=== PATIENT | female | born 1950 | race Caucasian/White ===

== ENCOUNTER → 2016-11-20 | Outpatient (CLI) | payer BC ==
[2016-11-20 15:14] LABS: ALT 136 U/L (9-52); AST 72 U/L (14-36); Alkaline Phosphatase 78 U/L (38-126); Anion Gap 8 mmol/L; Blood Urea Nitrogen 17 mg/dL (7-17); Calcium 12.5 mg/dL (8.4-10.2); Carbon Dioxide 28 mmol/L (22-30); Chloride 105 mmol/L (98-107); Glucose 92 mg/dL (74-99); Non-African American GFR(MDRD) 50 (>60 ml/min/1.73 sqM); Potassium 4.3 mmol/L (3.5-5.1); Sodium 141 mmol/L (137-145); Total Bilirubin 0.6 mg/dL (0.2-1.3); Total Protein 7.8 g/dL (6.3-8.2)
[2016-11-20 15:31] LABS: Prolactin <1.4 ng/mL (3.0-18.6)
== END | disposition home or self-care (01) ==
LOC: LABWHC1 14:43
PROVIDERS: ATTEND Internal Medicine Endocrinology, Diabetes & Metabolism
DX: E21.0 Primary hyperparathyroidism (principal)
CPT/HCPCS: 36415; 80053; 83970; 84146

== ENCOUNTER → 2016-11-29 | Outpatient (CLI) | payer BC ==
--- NOTE | 2016-11-29 12:49 | CT ---
EXAMINATION TYPE: CT abdomen pelvis w con DATE OF EXAM: 11/29/2016 12:08 PM COMPARISON: NONE HISTORY: LLQ pain. Elevated LFTs CT DLP: 1274 mGycm CONTRAST: CT scan of the abdomen and pelvis is performed with Oral Contrast and with IV Contrast, patient injec dora with 100 ml mL of Omnipaque 300. FINDINGS: LUNG BASES-: No visible nodule. No infiltrate. LIVER/GB: No calcified gallstones. Mild hepatic steatosis and mild hepatomegaly. Cystic lesion at t he dome of the liver measuring 3.4 cm. Smaller simple cyst measuring 5 mm left hepatic lobe. Biliary tree is of normal caliber. PANCREAS: No inflammation. No distinct mass. SPLEEN: No splenic enlargement. No lesion seen. ADRENALS: No nodule. No thickening. KIDNEYS/BLADDER: No hydronephrosis. 5 mm nonobstructing calculus mid to upper pole right kidney. No additional calculi seen. No disctinct renal mass. Urinary bladder grossly unremarkable. BOWEL: There is wall thickening involving the sigmoid colon which may reflect colitis. Mild diverticu litis is difficult to exclude. Correlate clinically. The remainder of the colon and small bowel are o f normal caliber. Normal appendix is identified. GENITAL ORGANS: Hysterectomy changes noted. LYMPH NODES: No greater than 1cm abdominal or pelvic lymph nodes are appreciated. AORTA: No significant abnormality. OSSEOUS STRUCTURES: No significant abnormality is seen. OTHER: No significant additional abnormality is seen. IMPRESSION: 1. Sigmoid colitis versus diverticulitis. No evidence of perforation or abscess. 2. Mild hepatic steatosis and borderline hepatomegaly. Hepatic simple cysts.
== END | disposition home or self-care (01) ==
LOC: RADCTMAIN 11:12
PROVIDERS: ATTEND Family Medicine
DX: K76.0 Fatty (change of) liver, not elsewhere classified (principal); R16.0 Hepatomegaly, not elsewhere classified; K76.89 Other specified diseases of liver; K57.90 Diverticulosis of intestine, part unspecified, without perforation or abscess without bleeding; R74.8 Abnormal levels of other serum enzymes
CPT/HCPCS: 74177; Q9967

== ENCOUNTER → 2017-01-09 | Outpatient (CLI) | payer BC | LOC: LABWHC1 11:24 | PROVIDERS: ATTEND Internal Medicine Endocrinology, Diabetes & Metabolism | DX: E21.0 Primary hyperparathyroidism (principal) | CPT/HCPCS: 81050; 82340 ==

== ENCOUNTER 2017-04-17 07:29 | Day surgery (SDC) | payer BC ==
[2017-04-15 16:18] VITALS: BMI 29.1
[~2017-04-17 07:29] MED LIST: LACTATED RINGERS 1,000 ML IV SCH; LIDOCAINE 1% 20 ML VIAL (10MG/ML) FOR IV START INTRADERMA PRN
[2017-04-17 07:39] VITALS: RESP 18; TEMP 97.1
[2017-04-17] MEDS ORDERED: LACTATED RINGERS 1,000 ML IV ONE (07:54)
[2017-04-17] MEDS ORDERED: LIDOCAINE 1% INJ 10MG/ML (20 ML MDV) ONE (07:58)
[2017-04-17] MEDS ORDERED: PROPOFOL 10 MG/ML 20 ML VIAL IV ONE (07:58)
--- NOTE | 2017-04-17 08:03 | P.GSHP ---
History of Present Illness H&P Date: 04/17/17 Chief Complaint: Change in bowel habits Patient here today for colonoscopy. Last colonoscopy was actually 2 years ago. Since that time the patient developed an episode that she was told represented colitis. Some diarrhea. No rectal bleeding. Symptoms resolved at least of antibiotics. No ongoing complaints. Past Medical History Past Medical History: Thyroid Disorder Additional Past Medical History / Comment(s): COLITIS, ABD. PAIN, OCCASIONAL EDEMA, History of Any Multi-Drug Resistant Organisms: None Reported Past Surgical History: Hysterectomy, Orthopedic Surgery Additional Past Surgical History / Comment(s): PARATHYROIDECTOMY, SHOULDER SX Past Anesthesia/Blood Transfusion Reactions: No Reported Reaction Smoking Status: Former smoker - Past Family History Father Family Medical History: Cancer Additional Family Medical History / Comment(s): SKIN Medications and Allergies Home Medications Medication Instructions Recorded Confirmed Type Spironolactone 50 mg PO DAILY 01/11/15 04/15/17 History traZODone HCL [Desyrel] 100 mg PO HS 01/11/15 04/15/17 History Ascorbic Acid [Vitamin C] 500 mg PO DAILY 04/15/17 04/15/17 History Biotin 5,000 mcg PO DAILY 04/15/17 04/15/17 History Calcium Carbonate [Calcium] 600 mg PO DAILY 04/15/17 04/15/17 History Cholecalciferol [Vitamin D3] 1,000 unit PO DAILY 04/15/17 04/15/17 History Cyanocobalamin [Vitamin B-12] 500 mcg PO DAILY 04/15/17 04/15/17 History Estradiol 0.5 mg PO DAILY 04/15/17 04/15/17 History Fish Oil/Dha/Epa [Fish Oil 1,200 2,400 mg PO DAILY 04/15/17 04/15/17 History mg Fish Oil] Vitamin A 2,400 mcg PO DAILY 04/15/17 History Levothyroxine Sodium [Synthroid] 100 mcg PO DAILY 04/17/17 04/17/17 History Allergies Allergy/AdvReac Type Severity Reaction Status Date / Time nickel Allergy Rash/Hives Verified 04/15/17 16:12 [place] Allergy NASAL Uncoded 04/15/17 16:12 [facility] - Exam Vital Signs Temp Pulse Resp BP Pulse Ox 97.1 F L 87 18 126/81 94 L 04/17/17 07:38 04/17/17 07:38 04/17/17 07:38 04/17/17 07:38 04/17/17 07:38 Physical exam: General: Well-developed, well-nourished HEENT: Normocephalic, sclerae nonicteric Abdomen: Nontender, nondistended Extremities: No edema Neuro: Alert and oriented Assessment and Plan (1) Change in bowel habits Narrative/Plan: Will proceed with colonoscopy at this time. Status: Acute
--- NOTE | 2017-04-17 08:21 | P.PCN ---
Date of Procedure: 04/17/17 Procedure(s) Performed: PREOPERATIVE DIAGNOSIS: Change in bowel habits POSTOPERATIVE DIAGNOSIS: Diverticulosis PROCEDURE: Colonoscopy ANESTHESIA: MAC SURGEON: Ced Mari M.D. SPECIMENS: None ENDOSCOPIC PROCEDURE: The patient was placed on the endoscopy table in the left decubitus position. The Olympus colonoscope was inserted into the anus and passed under direct visualization to the base of the cecum. The appendiceal orifice was visualized. From that point the scope was slowly withdrawn inspecting all surfaces carefully. There were no neoplastic or polypoid lesions throughout the cecum, ascending, transverse, descending, sigmoid and rectum. There was moderate diverticulosis noted throughout the colon. In the mid sigmoid colon corresponding to the area on the CAT scan performed in November there was an area of less distensible colon with some very subtle inflammation noted. This is likely a site of recent diverticulitis and residual mild stricture formation. Digital rectal examination was normal. The patient was taken to the recovery room in stable condition per anesthesia guidelines. RECOMMENDATIONS: Continue diverticular diet. We'll discuss the options of elective resection but given the patient's relative lack of symptoms currently we'll likely proceed with close observation. Plan follow colonoscopy 10 years.
[2017-04-17 08:35] VITALS: PULSE 73
[2017-04-17 08:36] VITALS: BP 116/84
== END 2017-04-17 08:52 | disposition home or self-care (01) ==
LOC: ORWHC2ENDO 07:29
PROVIDERS: ATTEND Surgery
DX: R19.4 Change in bowel habit (principal); K57.30 Diverticulosis of large intestine without perforation or abscess without bleeding; E07.9 Disorder of thyroid, unspecified; Z79.899 Other long term (current) drug therapy; Z87.891 Personal history of nicotine dependence
CPT/HCPCS: 45378; J2001; J2704

== ENCOUNTER → 2017-05-09 | Outpatient (CLI) | payer MEDICARE ==
--- NOTE | 2017-05-13 08:21 | MM ---
Reason for exam: screening (asymptomatic). Last mammogram was performed 1 year and 4 months ago. History: Patient is postmenopausal. Taking estrogen for 22 years beginning at age 37. Physical Findings: A clinical breast exam by your physician is recommended on an annual basis and results should be correlated with mammographic findings. MG 3D Screening Mammo W/Cad Bilateral CC and MLO view(s) were taken. Prior study comparison: January 09, 2016, bilateral MG 3d screening mammo w/cad. January 07, 2015, bilateral MG screening mammo w CAD. There are scattered fibroglandular densities. Finding: There is a typically benign equal density (isodense), indistinct lobulated mass located 9 cm from the nipple in the outer quadrant, middle position of the left breast consistent with group of cysts. New finding since January 09, 2016 and January 07, 2015. ASSESSMENT: Incomplete: need additional imaging evaluation, BI-RAD 0 RECOMMENDATION: Ultrasound of the left breast. (upper outer quadrant) [facility] will attempt to contact patient to return for ultrasound.
== END | disposition home or self-care (01) ==
LOC: RADMAMWWP 11:38
PROVIDERS: ATTEND Obstetrics & Gynecology
DX: Z12.31 Encounter for screening mammogram for malignant neoplasm of breast (principal)
CPT/HCPCS: 77063; G0202

== ENCOUNTER → 2017-12-11 | Outpatient (CLI) | payer MEDICARE ==
--- NOTE | 2017-12-11 15:16 | US ---
EXAMINATION TYPE: US thyroid st tissue head/neck DATE OF EXAM: 12/11/2017 COMPARISON: US 12/27/2009 CLINICAL HISTORY: E04.1 thyroid nodule. Patient claims thyroid bx in MD office last year. Patient on Synthroid. GLAND SIZE: Right Lobe: 2.1 x 0.6 x 0.4 cm Overall Parenchyma: heterogenous Left Lobe: 1.8 x 0.7 x 0.5 cm Overall Parenchyma: heterogeneous Isthmus Thickness: 0.2 cm NODULES RIGHT: # of nodules measured on right: 0 LEFT: # of nodules measured on left: 0 ISTHMUS: # of nodules measured in the isthmus: 0 Bilateral neck scanned, no evidence of lymphadenopathy. IMPRESSION: Small, heterogeneous thyroid, bilaterally.
== END | disposition home or self-care (01) ==
LOC: RADUSMAIN 14:39
PROVIDERS: ATTEND Internal Medicine Endocrinology, Diabetes & Metabolism
DX: E04.1 Nontoxic single thyroid nodule (principal); E21.0 Primary hyperparathyroidism
CPT/HCPCS: 36415; 76536; 83970

== ENCOUNTER → 2018-02-13 | Outpatient (CLI) | payer MEDICARE ==
--- NOTE | 2018-02-13 14:04 | MM ---
Reason for exam: follow-up at short interval from prior study. Last mammogram was performed 9 months ago. History: Patient is postmenopausal. Taking estrogen for 22 years beginning at age 37. Physical Findings: Nurse did not find any significant physical abnormalities on exam. MG 3D Diag Mammo W/Cad LT CC, MLO, and XCCL view(s) were taken of the left breast. Prior study comparison: May 09, 2017, bilateral MG 3d screening mammo w/cad. January 09, 2016, bilateral MG 3d screening mammo w/cad. The breast tissue is heterogeneously dense. This may lower the sensitivity of mammography. Upper outer quadrant density of the left breast has resolved. No significant new findings when compared with previous films. These results were verbally communicated with the patient and result sheet given to the patient on 02/13/18. ASSESSMENT: Negative, BI-RAD 1 RECOMMENDATION: Return to routine screening mammogram schedule for both breasts.
== END | disposition home or self-care (01) ==
LOC: RADMAMWWP 12:53
PROVIDERS: ATTEND Family Medicine
DX: R92.8 Other abnormal and inconclusive findings on diagnostic imaging of breast (principal)
CPT/HCPCS: 77065; G0279; 77061

== ENCOUNTER → 2018-05-27 | Outpatient (CLI) | payer MEDICARE ==
--- NOTE | 2018-05-28 08:54 | MM ---
Reason for exam: screening (asymptomatic). Last mammogram was performed 3 months ago. History: Patient is postmenopausal. Taking estrogen for 22 years beginning at age 37. Physical Findings: A clinical breast exam by your physician is recommended on an annual basis and results should be correlated with mammographic findings. MG 3D Screening Mammo W/Cad Bilateral CC and MLO view(s) were taken. Prior study comparison: February 13, 2018, left breast MG 3d diag mammo w/cad LT. May 09, 2017, bilateral MG 3d screening mammo w/cad. The breast tissue is heterogeneously dense. This may lower the sensitivity of mammography. Finding: There are typically benign dystrophic, round, diffuse/scattered and grouped calcifications in both breasts. There is no discrete abnormality. ASSESSMENT: Benign, BI-RAD 2 RECOMMENDATION: Routine screening mammogram of both breasts in 1 year.
== END | disposition home or self-care (01) ==
LOC: RADMAMWWP 10:57
PROVIDERS: ATTEND Family Medicine
DX: Z12.31 Encounter for screening mammogram for malignant neoplasm of breast (principal)
CPT/HCPCS: 77063; 77067

== ENCOUNTER → 2019-02-23 | Outpatient (CLI) | payer MEDICARE ==
--- NOTE | 2019-02-23 10:36 | MM ---
Reason for exam: clinical finding. Last mammogram was performed 9 months ago. History: Patient is postmenopausal. Taking estrogen for 22 years beginning at age 37. Physical Findings: Nurse did not find any significant physical abnormalities on exam. MG 3D Diag Mammo W/Cad JUNIOR Bilateral CC and MLO view(s) were taken. Prior study comparison: May 27, 2018, bilateral MG 3d screening mammo w/cad. February 13, 2018, left breast MG 3d diag mammo w/cad LT. The breast tissue is heterogeneously dense. This may lower the sensitivity of mammography. Benign appearing bilateral calcifications. No suspicious abnormality. No significant new findings when compared with previous films. These results were verbally communicated with the patient and result sheet given to the patient on 02/23/19. ASSESSMENT: Incomplete: need additional imaging evaluation, BI-RAD 0 RECOMMENDATION: Ultrasound of the right breast. (focal right pain)
--- NOTE | 2019-02-23 10:37 | USB ---
Reason for exam: additional evaluation requested from abnormal screening. History: Patient is postmenopausal. Taking estrogen for 22 years beginning at age 37. US Breast Limited RT Right limited breast ultrasound including focal area of concern, retroareolar and axilla demonstrates no cystic or solid lesion seen. No suspicious sonographic finding. These results were verbally communicated with the patient and result sheet given to the patient on 02/23/19. ASSESSMENT: Negative, BI-RAD 1 RECOMMENDATION: Routine screening mammogram of both breasts in 1 year. Manage on a clinical basis with regard to pain.
== END | disposition home or self-care (01) ==
LOC: RADMAMWWP 08:52
PROVIDERS: ATTEND Family Medicine
DX: R92.8 Other abnormal and inconclusive findings on diagnostic imaging of breast (principal)
CPT/HCPCS: 77066; 76642; G0279; 77062

== ENCOUNTER → 2019-05-07 | Outpatient (CLI) | payer MEDICARE ==
--- NOTE | 2019-05-07 12:19 | XR ---
EXAMINATION TYPE: XR toes LT DATE OF EXAM: 05/07/2019 COMPARISON: None HISTORY: Left toe pain TECHNIQUE: 3 view left toes FINDINGS: No acute fractures or dislocations are evident. Soft tissues appear unremarkable. The secon d digit appears intact, the location of the patient's pain. Joint spaces and some mild proximal inter phalangeal joint space narrowing. First metatarsophalangeal joint space has mild narrowing. Joint spa jennifer are otherwise unremarkable. IMPRESSION: 1. No acute osseous abnormality second digit left foot
== END | disposition home or self-care (01) ==
LOC: RADXRYALE 11:46
PROVIDERS: ATTEND Physician Assistant Medical
DX: M79.675 Pain in left toe(s) (principal)

== ENCOUNTER → 2019-05-13 | Outpatient (CLI) | payer MEDICARE ==
--- NOTE | 2019-05-13 16:32 | BD ---
EXAMINATION TYPE: Axial Bone Density DATE OF EXAM: 05/13/2019 COMPARISON: 2012 CLINICAL HISTORY: disorder of bone Height: 5'5 Weight: 194 FRAX RISK QUESTIONS: History of Fracture in Adulthood: y Secondary Osteoporosis: RISK FACTORS HISTORY OF: History of Wrist Fracture: left When: 63 Postmenopausal woman: y Take estrogen and/or progesterone medications: y How lon years MEDICATIONS: Thyroid Medications: Which medication: synthroid How Lon years Additional Medications: sleep aid Additional History: EXAM MEASUREMENTS: Bone mineral densitometry was performed using the [employer] System. Bone mineral density as measured about the Lumbar spine is: ----- L1-L4(G/cm2): 1.243 T Score Values are as follows: ----- L2: 0.3 ----- L3: 0.2 ----- L4: 1.2 ----- L1-L4: 0.5 Bone mineral density has: Increased 1.0% since study of: 03/24/2013 Bone mineral density about the R hip (g/cm2): 0.790 Bone mineral density about the L hip (g/cm2): 0.795 T Score values are as follows: -----R Neck: -1.8 -----L Neck: -1.7 -----R Total: -0.9 -----L Total: -1.0 Bone mineral density has: Increased 1.1% since study of: 03/24/2013 IMPRESSION: Osteopenia (T Score between -2.5 and -1). There is slightly increased risk of fracture and the patient may be considered for treatment. Re-Screen 2-5 years. NOTE: T-SCORE=SD OF THE YOUNG ADULT MEAN.
== END | disposition home or self-care (01) ==
LOC: RADBDWWP 15:10
PROVIDERS: ATTEND Family Medicine
DX: M85.80 Other specified disorders of bone density and structure, unspecified site (principal)
CPT/HCPCS: 77080

== ENCOUNTER → 2019-12-31 | Outpatient (CLI) | payer MEDICARE ==
--- NOTE | 2019-12-31 09:09 | US ---
EXAMINATION TYPE: US abdomen limited DATE OF EXAM: 12/31/2019 COMPARISON: NONE CLINICAL HISTORY: E04.1 Thyroid nodule. Abnormal liver function tests EXAM MEASUREMENTS: Liver Length: 17.2 cm Gallbladder Wall: .3 cm CBD: .2 cm Right Kidney: 10.2 x 4.1 x 4.4 cm Pancreas: Tail obscured by overlying bowel gas Liver: Increased attenuation Anechoic area seen measuring 3.0 x 3.8 x 3.8 cm. Gallbladder: wnl Evidence for sonographic Gaytan's sign: No CBD: wnl Right Kidney: Echogenic area lower pole 1.3 x .8 x 1.1 cm. This has posterior shadowing. IMPRESSION: 1. Hepatomegaly. 2. Simple appearing hepatic cyst. 3. Nonobstructing inferior pole right renal stone.
== END | disposition home or self-care (01) ==
LOC: RADUSWWP 08:26
PROVIDERS: ATTEND Internal Medicine Endocrinology, Diabetes & Metabolism
DX: R16.0 Hepatomegaly, not elsewhere classified (principal); K76.89 Other specified diseases of liver; N20.0 Calculus of kidney; R94.5 Abnormal results of liver function studies
CPT/HCPCS: 76536; 76705

== ENCOUNTER → 2019-12-31 | Outpatient (CLI) | payer MEDICARE ==
--- NOTE | 2019-12-31 09:25 | US ---
EXAMINATION TYPE: US thyroid st tissue head/neck DATE OF EXAM: 12/31/2019 COMPARISON: NONE CLINICAL HISTORY: K76.0 fatty liver, R94.5 liver fxn. Thyroid nodule patient on meds for years. GLAND SIZE: Right Lobe: 1.6 x .7 x .5 cm Overall Parenchyma: heterogenous Left Lobe: 1.1 x .4 x .4 cm Overall Parenchyma: heterogeneous Isthmus Thickness: .3 cm NODULES RIGHT: # of nodules measured on right: 0 LEFT: # of nodules measured on left: 0 ISTHMUS: # of nodules measured in the isthmus: 0 Bilateral neck scanned, no evidence of lymphadenopathy. IMPRESSION: 1. Atrophic appearing thyroid. No suspicious nodules identified.
== END | disposition home or self-care (01) ==
LOC: RADUSWWP 08:13
PROVIDERS: ATTEND Family Medicine
DX: E04.1 Nontoxic single thyroid nodule (principal)
CPT/HCPCS: 76536

== ENCOUNTER → 2020-01-20 | Outpatient (CLI) | payer MEDICARE ==
--- NOTE | 2020-01-20 09:49 | MM ---
Reason for exam: clinical finding. Last mammogram was performed 11 months ago. History: Patient is postmenopausal. Taking estrogen for 32 years beginning at age 37. Physical Findings: Nurse did not find any significant physical abnormalities on exam. MG 3D Diag Mammo W/Cad RT CC and MLO view(s) were taken of the right breast. Prior study comparison: February 23, 2019, bilateral MG 3d diag mammo w/cad JUNIOR. May 27, 2018, bilateral MG 3d screening mammo w/cad. The breast tissue is heterogeneously dense. This may lower the sensitivity of mammography. There is chronic nodularity in the right breast. There is no discrete abnormality including area of concern. No significant new findings when compared with previous films. These results were verbally communicated with the patient and result sheet given to the patient on 01/20/20. ASSESSMENT: Incomplete: need additional imaging evaluation, BI-RAD 0 RECOMMENDATION: Ultrasound of the right breast. Manage patient on a clinical basis.
--- NOTE | 2020-01-20 09:52 | USB ---
Reason for exam: additional evaluation requested from abnormal screening. History: Patient is postmenopausal. Taking estrogen for 32 years beginning at age 37. US Breast RT Right complete breast ultrasound includes all four quadrants, the retroareolar region and axilla. Finding demonstrates a 3 x 3 x 3mm cystic cluster at 2 o'clock, a 3 x 3 x 5mm cystic cluster at 5 o'clock and a 4 x 2 x 3mm cystic lesion at 7 o'clock. These results were verbally communicated with the patient and result sheet given to the patient on 01/20/20. ASSESSMENT: Benign, BI-RAD 2 RECOMMENDATION: Follow-up diagnostic mammogram of both breasts in 1 month. Back on schedule for February 2020. Manage patient on a clinical basis.
== END | disposition home or self-care (01) ==
LOC: RADMAMWWP 08:08
PROVIDERS: ATTEND Surgery
DX: N60.09 Solitary cyst of unspecified breast (principal); R92.8 Other abnormal and inconclusive findings on diagnostic imaging of breast
CPT/HCPCS: 77065; 76641; G0279; 77061

== ENCOUNTER → 2020-03-24 | Outpatient (CLI) | payer MEDICARE ==
--- NOTE | 2020-03-29 10:27 | MM ---
Reason for exam: screening (asymptomatic). Last mammogram was performed 2 months ago. History: Patient is postmenopausal. Taking estrogen for 32 years beginning at age 37. Physical Findings: A clinical breast exam by your physician is recommended on an annual basis and results should be correlated with mammographic findings. MG 3D Screening Mammo W/Cad Bilateral CC and MLO view(s) were taken. Prior study comparison: January 20, 2020, right breast MG 3d diag mammo w/cad RT. February 23, 2019, bilateral MG 3d diag mammo w/cad JUNIOR. There are scattered fibroglandular densities. There is chronic nodularity bilaterally. 7mm nodule subareolar right CC view is larger. ASSESSMENT: Incomplete: need additional imaging evaluation, BI-RAD 0 RECOMMENDATION: Special view mammogram and ultrasound of the right breast. [facility] will attempt to contact patient to return for supplemental views and ultrasound.
== END | disposition home or self-care (01) ==
LOC: RADMAMWWP 11:02
PROVIDERS: ATTEND Surgery
DX: Z12.31 Encounter for screening mammogram for malignant neoplasm of breast (principal)
CPT/HCPCS: 77063; 77067

== ENCOUNTER → 2020-04-06 | Outpatient (CLI) | payer MEDICARE ==
--- NOTE | 2020-04-06 12:04 | MM ---
Reason for exam: additional evaluation requested from abnormal screening. Last mammogram was performed less than 1 month ago. History: Patient is postmenopausal. Taking estrogen for 33 years beginning at age 37. Physical Findings: Nurse did not find any significant physical abnormalities on exam. MG 3D Work Up W/Cad RT Spot compression CC, spot compression MLO, and LM view(s) were taken of the right breast. Prior study comparison: March 24, 2020, bilateral MG 3d screening mammo w/cad. January 20, 2020, right breast MG 3d diag mammo w/cad RT. There are scattered fibroglandular densities. There is chronic nodularity in the right breast. No significant new findings when compared with previous films. These results were verbally communicated with the patient and result sheet given to the patient on 04/06/20. ASSESSMENT: Probably benign, BI-RAD 3 RECOMMENDATION: Follow-up diagnostic mammogram of the right breast in 6 months. Manage patient on a clinical basis.
--- NOTE | 2020-04-06 12:05 | USB ---
Reason for exam: additional evaluation requested from abnormal screening. History: Patient is postmenopausal. Taking estrogen for 33 years beginning at age 37. US Breast Workup Limited RT Right limited breast ultrasound including focal area of concern, retroareolar and axilla demonstrates a 0.4 x 0.3 x 0.5cm oval, hypoechoic lesion too small to characterize at 6 o'clock. These results were verbally communicated with the patient and result sheet given to the patient on 04/06/20. ASSESSMENT: Benign, BI-RAD 2 RECOMMENDATION: Follow-up diagnostic mammogram of the right breast in 6 months. Manage patient on a clinical basis.
== END | disposition home or self-care (01) ==
LOC: RADMAMWWP 09:29
PROVIDERS: ATTEND Surgery
DX: R92.8 Other abnormal and inconclusive findings on diagnostic imaging of breast (principal)
CPT/HCPCS: 77065; 76642; G0279; 77061

== ENCOUNTER → 2020-12-30 | Outpatient (CLI) | payer MEDICARE ==
--- NOTE | 2021-01-05 11:41 | MM ---
Reason for exam: follow-up at short interval from prior study. Last mammogram was performed 9 months ago. History: Patient is postmenopausal. Taking estrogen for 33 years beginning at age 37. Physical Findings: Nurse did not find any significant physical abnormalities on exam. MG 3D Diag Mammo W/Cad RT CC and MLO view(s) were taken of the right breast. Prior study comparison: April 06, 2020, right breast MG 3d work up w/cad RT. March 24, 2020, bilateral MG 3d screening mammo w/cad. February 23, 2019, bilateral MG 3d diag mammo w/cad JUNIOR. There are scattered fibroglandular densities. Two areas of retroareaolar nodularity on CC are relatively unchanged for 6 months. Patient reports bloody nipple discharge yesterday. These results were verbally communicated with the patient and result sheet given to the patient on 12/30/20. ASSESSMENT: Incomplete: need additional imaging evaluation, BI-RAD 0 RECOMMENDATION: Ultrasound of the right breast. (subareolar and periareolar)
--- NOTE | 2021-01-05 11:44 | USB ---
Reason for exam: follow-up at short interval from prior study. History: Patient is postmenopausal. Taking estrogen for 33 years beginning at age 37. US Breast Limited RT Right limited breast ultrasound including focal area of concern, retroareolar and axilla demonstrates a 0.5 x 0.4 x 0.4cm oval, hypoechoic lesion at the posterior nipple, maybe the mammographic correlate. Patient with two episodes of bloody nipple discharge. Right retroareolar and axilla scanned. These results were verbally communicated with the patient and result sheet given to the patient on 12/30/20. ASSESSMENT: Suspicious, BI-RAD 4 RECOMMENDATION: Ultrasound core biopsy of the right breast. Called Dr. Fraga's with mammographic findings and has scheduled an appointment for the patient for 01/17/21 at 1:[address] Phillip. PRELIMINARY REPORT CALLED AND FAXED TO DR. PHILLIP ON 01/05/21.
== END | disposition home or self-care (01) ==
LOC: RADMAMWWP 10:10
PROVIDERS: ATTEND Physician Assistant Medical
DX: N64.89 Other specified disorders of breast (principal); R92.8 Other abnormal and inconclusive findings on diagnostic imaging of breast; Z78.0 Asymptomatic menopausal state
CPT/HCPCS: 77065; 76642; G0279; 77061

== ENCOUNTER → 2021-02-01 | Day surgery (SDC) | payer MEDICARE ==
[2021-02-01 07:32] VITALS: RESP 16
--- NOTE | 2021-02-01 08:54 | USB ---
EXAMINATION TYPE: US biopsy breast VAD RT, MG diagnostic mammo RT wo CAD DATE OF EXAM: 02/01/2021 CLINICAL HISTORY: R92.8 ABN MAMMO. TECHNIQUE: Ultrasound guided core biopsy of right breast. COMPARISON: 12/30/2020 FINDINGS: The procedure of ultrasound guided core biopsy was explained to the patient. Benefits, alternatives, and risks were discussed. An informed consent was then obtained. The patient was placed in supine positioning for imaging and for the procedure. The overlying skin was prepped and draped in usual sterile fashion. Lidocaine buffered with bicarbonate was used as anesthetic into the skin and subcutaneous tissue up to area of concern in the right breast. Lidocaine with epinephrine was injected into the soft tissue surrounding the right breast lesion. A siomara was made with surgical scalpel. Under ultrasound guidance, a 12-gauge vacuum assisted biopsy gun device was used to obtain 3 core samples. Following this, a biopsy clip was left in lesion. The patient tolerated the procedure well without any immediate complication. The patient was kept in the radiology department for short stay after the procedure and then discharged home in stable condition. Postprocedure mammogram demonstrates biopsy clip in the retroareolar region. Please note, this does not correspond to either of the asymmetry is identified on prior mammogram. IMPRESSION: Successful, uncomplicated ultrasound guided core biopsy of area of concern in the right breast, full pathology results to follow. Postprocedure mammogram demonstrates biopsy clip in the retroareolar region. Please note, this does not correspond to either of the asymmetry is identified on prior mammogram. Pathology Results: High Risk RIGHT BREAST POSTERIOR NIPPLE, CORE BIOPSY: Intraductal papilloma(s) with usual ductal hyperplasia (see note). Sclerotic stromal fibrosis with focal fibrocystic change. Recommendation Surgical consult of the right breast. CHRISTELLED
[2021-02-01 08:57] VITALS: BP 143/85; PULSE 84; TEMP 98
== END ==
LOC: RADUSWWP 07:08
PROVIDERS: ATTEND Surgery
DX: D24.1 Benign neoplasm of right breast (principal); N62 Hypertrophy of breast; N60.31 Fibrosclerosis of right breast
CPT/HCPCS: 88305; 77065; 19083; A4648; J2001

== ENCOUNTER → 2021-04-26 | Outpatient (CLI) | payer MEDICARE ==
--- NOTE | 2021-04-26 11:53 | US ---
EXAMINATION TYPE: US thyroid st tissue head/neck DATE OF EXAM: 04/26/2021 COMPARISON: CLINICAL HISTORY: E04.1 Nontoxic single thyroid nodule. Hx parathyroid removed. On thyroid meds. GLAND SIZE: Right Lobe: 2.5 x 0.8 x0.7 cm Overall Parenchyma: homogenous Left Lobe: 3.0 x 0.6 x 0.5 cm Overall Parenchyma: homogeneous Isthmus Thickness: 0.2 cm NODULES RIGHT: # of nodules measured on right: 0 LEFT: # of nodules measured on left: 0 ISTHMUS: # of nodules measured in the isthmus: 0 Bilateral neck scanned, no evidence of lymphadenopathy. Bilateral lobes appears small in size. IMPRESSION: 1. Normal thyroid
== END | disposition home or self-care (01) ==
LOC: RADUSWWP 10:34
PROVIDERS: ATTEND Internal Medicine Endocrinology, Diabetes & Metabolism
DX: E04.1 Nontoxic single thyroid nodule (principal)
CPT/HCPCS: 76536

== ENCOUNTER → 2021-12-04 | Outpatient (CLI) | payer MEDICARE ==
--- NOTE | 2021-12-04 11:17 | XR ---
EXAMINATION TYPE: XR chest 2V DATE OF EXAM: 12/04/2021 COMPARISON: NONE HISTORY: Chronic cough for one year. History of tobacco use in the past. TECHNIQUE: Frontal and lateral views of the chest are obtained. FINDINGS: There is no suspicious focal air space opacity, pleural effusion, or pneumothorax seen. T he cardiac silhouette size is within normal limits. The osseous structures are intact. IMPRESSION: No acute process.
== END | disposition home or self-care (01) ==
LOC: RADXRYALE 10:49
PROVIDERS: ATTEND Physician Assistant Medical
DX: R05.3 Chronic cough (principal); Z87.891 Personal history of nicotine dependence
CPT/HCPCS: 71046

== ENCOUNTER → 2022-06-08 | Outpatient (CLI) | payer MEDICARE ==
--- NOTE | 2022-06-11 07:47 | MM ---
Reason for Exam: Screening (asymptomatic). Last mammogram was performed 2 year(s) and 2 month(s) ago. Patient History: Menarche at age 18. First Full-Term at age 21. Right ovary removed at age 32. Hysterectomy at age 32. Postmenopausal. Currently using Estrogen, beginning at age 37 for 33 years. 02/01/2021, High risk Core Biopsy on the right side. Risk Values: Susan 5 year model risk: 1.3%. NCI Lifetime model risk: 3.9%. Prior Study Comparison: 04/06/2020 Right Diagnostic Mammogram, [facility]. 12/30/2020 Right Diagnostic Mammogram, [facility]. 02/01/2021 Right Diagnostic Mammogram, [facility]. Tissue Density: The breast tissue is heterogeneously dense. This may lower the sensitivity of mammography. Findings: Analyzed By CAD. There is no suspicious group of microcalcifications or new suspicious mass in either breast. Overall Assessment: Benign, BI-RAD 2 Management: Screening Mammogram of both breasts in 1 year. A clinical breast exam by your physician is recommended on an annual basis and results should be correlated with mammographic findings. Electronically signed and approved by: Lucien Navarro M.D. Radiologis
== END | disposition home or self-care (01) ==
LOC: RADMAMWWP 12:33
PROVIDERS: ATTEND Family Medicine
DX: Z12.31 Encounter for screening mammogram for malignant neoplasm of breast (principal); Z78.0 Asymptomatic menopausal state; Z90.721 Acquired absence of ovaries, unilateral
CPT/HCPCS: 77063; 77067

== ENCOUNTER → 2023-01-16 | Outpatient (CLI) | payer MEDICARE ==
--- NOTE | 2023-01-16 09:18 | US ---
EXAMINATION TYPE: US abdomen limited DATE OF EXAM: 01/16/2023 COMPARISON: CT, US CLINICAL INDICATION: Female, 72 years old with history of Q44.6CYSTIC DISEASE OF LIVER; Cyst of liver . Elevation of levels of liver transaminitis, cystic disease of liver. TECHNIQUE: Multiple sonographic images of the right upper quadrant are obtained. FINDINGS: EXAM MEASUREMENTS: Liver Length: 17.6 cm Gallbladder Wall: 0.23 cm CBD: 0.51 cm Right Kidney: 10.4 x 5.7 x 5.3 cm SERVICE DESK TEAM LEAD NOTES: Limited due to gas Pancreas: Appears hyperechoic. Tail was not well seen. Liver: Measures upper limits. Appears coarse with increased echogenicity. Anechoic area seen in left lobe: 1.2 x 0.9 x 0.7 cm. Anechoic area seen in right lobe: 4.4 x 4.9 x 4.6 cm. *Indistinct, hypoechoic area seen near the gallbladder: 2.5 x 1.9 x 2.0 cm. Gallbladder: Appears wnl Evidence for sonographic Gaytan's sign: No CBD: Appears wnl Right Kidney: Hyperechoic focus seen with posterior shadowing at the lower pole: 1.3 x 1.0 x 0.8 cm. IMPRESSION: 1. Indeterminate area within the liver within the left hepatic lobe. Further evaluation MRI liver ma ss protocol is recommended. 2. Coarsened echotexture to liver, correlate for hepatocellular disease. 3. Nonobstructing right renal calculus.
--- NOTE | 2023-01-16 10:52 | CA ---
Exercise Stress Test Report Name: Kassie Gaines Exam Date: 01/16/2023 09:57 Exam Location: [place] Stress Ht (in): 66 Wt (lb): 182 BSA: 1.92 Ordering Phys: Randy Grover DO Referring Phys: ASIF,, Technologist: Roderick Vega Age: 72 Gender: F : 1950 Procedure CPT: Indications: i10 ICD-10 Codes: Patient History: CHEST PAIN, PALPITATIONS, FAMILY HX OF HEART DISEASE, PRIOR SMOKER 1 PPD X 30 YEARS (QUIT 15 YEARS) Medications: TRAZADONE, SPIRALACTONE, ESTRADOL, FISH OIL, MULTIVITAMIN, ZINC, IRON, VIT A, B, D. Meds past 24 hrs: Pretest Chest Pain: STRESS TEST Mt Protocol Exercise Duration (min:sec): 06:[address] Depressions (mm): Angina Score: Lui Score: Resting HR (bpm): 98 Peak HR (bpm): 158 Resting BP (mmHg): 143 / 94 Peak BP (mmHg): 202 / 91 MPHR: 150 Target HR: 128 % MPHR: 105 METS: 7.3 Total Dose: Peak Dose: Atropine: Double Product: 78117 BP Response: Stress Termination: MAX EXERTION/TARGET HR Stress Symptoms: NO SYMPTOMS Stress Summary: ECG ANALYSIS Resting ECG: Stress ECG: CONCLUSIONS Baseline EKG revealed a normal sinus rhythm with poor R-wave progression. No acute ST segment changes. Patient walked on a standard Mt protocol for a total duration of 6 minutes. Resting heart rate was 98 bpm and peak heart rate was 158 bpm. Resting blood pressure was 143/94 and peak blood pressure was 1 202/91. Patient did not have any anginal symptoms. There was no arrhythmia there were no ST segment changes to indicate ischemia. By EKG criteria this is a negative stenosis with limited exercise capacity Dr. Rafi Allred MD (Electronically Signed) Final Date: 16 January 2023 10:51
== END | disposition home or self-care (01) ==
LOC: RADUSWWP 08:22
PROVIDERS: ATTEND Family Medicine
DX: K76.9 Liver disease, unspecified (principal); N20.0 Calculus of kidney; Q44.6 Cystic disease of liver; I10 Essential (primary) hypertension; E78.2 Mixed hyperlipidemia; R74.01 Elevation of levels of liver transaminase levels; R07.89 Other chest pain
CPT/HCPCS: 76705; 93017

== ENCOUNTER → 2023-06-11 | Outpatient (CLI) | payer MEDICARE ==
--- NOTE | 2023-06-12 23:55 | MM ---
Reason for Exam: Screening (asymptomatic). Last screening mammogram was performed 12 month(s) ago. Patient History: Menarche at age 18. First Full-Term at age 21. Right ovary removed at age 32. Hysterectomy at age 32. Postmenopausal. Currently using Estrogen, beginning at age 37 for 33 years. 02/01/2021, High risk Core Biopsy on the right side. Risk Values: Susan 5 year model risk: 1.4%. NCI Lifetime model risk: 3.8%. Prior Study Comparison: 12/30/2020 Right Diagnostic Mammogram, [facility]. 02/01/2021 Right Diagnostic Mammogram, [facility]. 06/08/2022 Bilateral MG 3D screening mammo w/cad, [facility]. Tissue Density: There are scattered fibroglandular densities. Findings: Analyzed By CAD. Some fluctuating chronic nodularity in both breasts. There is no suspicious group of microcalcifications or new suspicious mass in either breast. Overall Assessment: Benign, BI-RAD 2 Management: Screening Mammogram of both breasts in 1 year. . Patient should continue monthly self-breast exams. A clinical breast exam by your physician is recommended on an annual basis. This exam should not preclude additional follow-up of suspicious palpable abnormalities. Note on Susan scores and lifetime risk: 1. A Susan score greater than 3% is considered moderate risk. If this is the case, consider specialist referral to assess eligibility for a risk reducing agent. 2. If overall lifetime risk for the development of breast cancer is 20% or higher, the patient may qualify for future screening with alternating mammogram and breast MRI. Electronically signed and approved by: Remy Brady M.D. Radiologist
== END | disposition home or self-care (01) ==
LOC: RADMAMWWP 10:39
PROVIDERS: ATTEND Family Medicine
DX: Z12.31 Encounter for screening mammogram for malignant neoplasm of breast (principal); Z78.0 Asymptomatic menopausal state
CPT/HCPCS: 77063; 77067

== ENCOUNTER → 2023-12-19 | Outpatient (CLI) | payer MEDICARE ==
--- NOTE | 2023-12-19 19:23 | US ---
EXAMINATION TYPE: US carotid duplex BILAT DATE OF EXAM: 12/19/2023 COMPARISON: NONE CLINICAL INDICATION: Female, 73 years old with history of E78.2 MIXED HYPERLIPIDEMIA; Former smoker, family history [place]; Patient denies any other signs, symptoms, or relevant history TECHNIQUE: Carotid duplex ultrasound examination. Indirect Doppler criteria was utilized. FINDINGS: EXAM MEASUREMENTS: RIGHT: Peak Systolic Velocity (PSV) cm/sec ----- Right CCA: 70 ----- Right ICA: 68 ----- Right ECA: 98 ICA/CCA ratio: 1.0 RIGHT: End Diastole cm/sec ----- Right CCA: 11 ----- Right ICA: 20 ----- Right ECA: 16 LEFT: Peak Systolic Velocity (PSV) cm/sec ----- Left CCA: 70 ----- Left ICA: 69 ----- Left ECA: 110 ICA/CCA ratio: 1.0 LEFT: End Diastole cm/sec ----- Left CCA: 21 ----- Left ICA: 22 ----- Left ECA: 20 VERTEBRALS (direction of flow): Right Vertebral: Antegrade Left Vertebral: Antegrade Rhythm: Normal POWER LINE LINEMAN NOTES: No intimal thickening, plaque, or elevated velocities seen. IMPRESSION: 1. No flow-limiting stenosis based on velocities. Criteria for Assigning % of Stenosis / Diameter reduction (Estimation based on the indirect measurements of the internal carotid artery velocities (ICA PSV). 1. Normal (no stenosis)=ICA PSV < 125 cm/s: ratio < 2.0: ICA EDV<40 cm/s. 2. Less than 50% stenosis=ICA PSV < 125 cm/s: ratio < 2.0: ICA EDV<40 cm/s. 3. 50 to 69% stenosis=ICA PSV of 125 to 230 cm/s: ration 2.0 ? 4.0: ICA EDV 40-100 cm/s. 4. Greater than 70% stenosis to near occlusion= ICA PSV > 230 cm/s: ratio > 4.0: ICA EDV > 100 cm/s. 5. Near occlusion= ICA PSV velocities may be low or undetectable: variable ratio and ICA EDV. 6. Total occlusion=unable to detect flow.
== END | disposition home or self-care (01) ==
LOC: RADUSWWP 11:16
PROVIDERS: ATTEND Family Medicine
DX: E78.2 Mixed hyperlipidemia (principal); I10 Essential (primary) hypertension; F03.90 Unspecified dementia, unspecified severity, without behavioral disturbance, psychotic disturbance, mood disturbance, and anxiety
CPT/HCPCS: 93880

== ENCOUNTER → 2024-06-16 | Outpatient (CLI) | payer MEDICARE ==
--- NOTE | 2024-06-17 08:42 | MM ---
Reason for Exam: Screening (asymptomatic). Last screening mammogram was performed 12 month(s) ago. Patient History: Menarche at age 18. First Full-Term at age 21. Right ovary removed at age 32. Hysterectomy at age 32. Postmenopausal. Currently using Estrogen, beginning at age 37 for 33 years. 02/01/2021, High risk Core Biopsy on the right side. Risk Values: Susan 5 year model risk: 1.4%. NCI Lifetime model risk: 3.6%. Prior Study Comparison: 05/27/2018 Bilateral Screening Mammogram, [facility]. 02/23/2019 Bilateral Diagnostic Mammogram, [facility]. 01/20/2020 Right Diagnostic Mammogram, [facility]. 03/24/2020 Bilateral Screening Mammogram, [facility]. 04/06/2020 Right Diagnostic Mammogram, [facility]. 12/30/2020 Right Diagnostic Mammogram, [facility]. 02/01/2021 Right Diagnostic Mammogram, [facility]. 06/08/2022 Bilateral MG 3D screening mammo w/cad, [facility]. 06/11/2023 Bilateral MG 3D screening mammo w/cad, [facility]. Tissue Density: The breasts are heterogeneously dense, which may obscure small masses. Findings: Analyzed By CAD. There is no suspicious group of microcalcifications or new suspicious mass in either breast. Benign-appearing calcifications. Overall Assessment: Benign, BI-RAD 2 Management: Screening Mammogram of both breasts in 1 year. . Patient should continue monthly self-breast exams. A clinical breast exam by your physician is recommended on an annual basis. This exam should not preclude additional follow-up of suspicious palpable abnormalities. Note on Susan scores and lifetime risk: 1. A Susan score greater than 3% is considered moderate risk. If this is the case, consider specialist referral to assess eligibility for a risk reducing agent. 2. If overall lifetime risk for the development of breast cancer is 20% or higher, the patient may qualify for future screening with alternating mammogram and breast MRI. [facility], , 06/17/2024 8:39 AM. Electronically signed and approved by: Dami Singh M.D. Radiologis
--- NOTE | 2024-06-22 08:01 | BMR ---
EXAM DATE: 06/16/2024 EXAM DESCRIPTION: MRI-Breast Bilat (W/WO Contrast) INDICATION: >20% lifetime risk for malignancy, high risk surveillance. COMPARISON: Comparison was made to prior relevant imaging available in PACS TECHNIQUE: Multiplanar multisequence breast MRI was performed prior to and after administration of 8 mL of Gadavist intravenously. Post processing was performed utilizing a [employer] workstation. The technical portion of this study was performed at [facility] with radiological interpretation by [facility] radiology. FINDINGS: There is mild, symmetric background parenchymal enhancement in breasts that are composed of scattered fibroglandular tissue.. RIGHT BREAST: Review of the dynamic contrast enhanced series shows no rapidly enhancing masses, suspicious enhancement patterns or other abnormalities. The T2 weighted series show no abnormality. LEFT BREAST: Review of the dynamic contrast enhanced series shows no rapidly enhancing masses, suspicious enhancement pattern or other abnormalities. The T2 weighted series show no abnormality. LYMPH NODES: No axillary or internal mammary lymphadenopathy. Incidentals: A 4.3 cm circumscribed T2 hyperintense nonenhancing cyst in the liver (series 401, image 15). IMPRESSION: Right breast: BI-RADS Category 1-negative. No MRI evidence of malignancy. Recommendation: MRI screening in 1 year Left breast: BI-RADS Category 1-negative. No MR evidence of malignancy. Recommendation: MRI screening in 1 year. OVERALL ASSESSMENT- BI-RADS 1 ANNUAL SCREENING BREAST MRI IN ADDITION TO MAMMOGRAPHY IS RECOMMENDED IN PATIENTS WITH LIFETIME RISK OF BREAST CANCER >20% MTDD
== END | disposition home or self-care (01) ==
LOC: RADMAMWWP 12:28
PROVIDERS: ATTEND Family Medicine
DX: Z12.31 Encounter for screening mammogram for malignant neoplasm of breast (principal); Z78.0 Asymptomatic menopausal state; Z90.721 Acquired absence of ovaries, unilateral; R92.333 Mammographic heterogeneous density, bilateral breasts; R92.311 Mammographic fatty tissue density, right breast
CPT/HCPCS: 77067; 77063; C8908; A9585; 77049